=== PATIENT | female | born 2000 | race Two or more races ===

== ENCOUNTER → 2018-01-15 | Outpatient (CLI) | payer MEDICAID | LOC: FIMAGING 12:45 | PROVIDERS: ATTEND Obstetrics & Gynecology | DX: Z34.91 Encounter for supervision of normal pregnancy, unspecified, first trimester (principal); Z3A.12 12 weeks gestation of pregnancy ==

== ENCOUNTER → 2018-06-05 | Outpatient (CLI) | payer MEDICAID | LOC: FIMAGING 14:37 | PROVIDERS: ATTEND Obstetrics & Gynecology | DX: O26.833 Pregnancy related renal disease, third trimester (principal); Z3A.32 32 weeks gestation of pregnancy ==